=== PATIENT | male | born 1985 | race Caucasian/White ===

== ENCOUNTER 2020-06-09 21:47 | Outpatient (REF) | payer BC, SELFPAY ==
[2020-06-11 13:18] LABS: COVID-19 RT-PCR UVMMC Result Negative (Negative)
== END 2020-06-09 21:48 | disposition home or self-care (01) ==
LOC: LBN 21:47
PROVIDERS: Visit Provider Nurse Practitioner Family
DX: Z20.822 Contact with and (suspected) exposure to COVID-19 (principal); J06.9 Acute upper respiratory infection, unspecified
CPT/HCPCS: U0003

== ENCOUNTER 2020-07-11 08:22 | Outpatient (REF) | payer BC, SELFPAY ==
[2020-07-11 16:36] LABS: HCT 46.8 % (40.0-50.0); HGB 16.4 g/dL (13.5-17.5); MCH 32.2 pg (27.0-33.0); MCV 91.8 fL (80-95); MPV 10.2 fL (8.0-11.0); Platelet Count 254 10^3/uL (130-400); RDW 12.3 % (11.8-14.1); RDW-SD 41.7 fL; WBC 7.15 10^3/uL (4.4-10.8)
[2020-07-11 17:07] LABS: Anion Gap 10.1 mmol/L (3-11); BUN 13 mg/dL (7-18); CO2 28.9 mmol/L (21.0-32.0); CREATININE 0.9 mg/dL (0.70-1.30); Calcium 9.1 mg/dL (8.5-10.1); Calculated LDL 136 mg/dL (<100); Chloride 103 mmol/L (98-107); Cholesterol 250 mg/dL (<200); Glucose 104 mg/dL (74-106); HDL Cholesterol 46 mg/dL (40-60); Potassium 4.3 mmol/L (3.5-5.1); Sodium 142 mmol/L (136-145); Triglyceride 342 mg/dL (<150)
== END 2020-07-11 08:23 | disposition home or self-care (01) ==
LOC: NCHCN 08:22
PROVIDERS: Visit Provider Physician Assistant
DX: I10 Essential (primary) hypertension (principal)
CPT/HCPCS: 80048; 80061; 85027